=== PATIENT | female | born 1970 | race Caucasian/White ===

== ENCOUNTER 2021-08-13 18:02 | Emergency (ER) | payer OTHER, SELFPAY ==
[2021-08-13 18:03] VITALS: BP 154/98; PULSE 86; PULSE 87; RESP 18; RESP 24; TEMP 36.9; O2SAT 98; O2SAT 99; BMI 22.0
--- NOTE | 2021-08-13 18:16 | EX.ED.DYSGE1 ---
HPI History of Present Illness Chief Complaint: Neuro S/Sx Informant: patient and spouse/S.O. Onset/Context/Timing Onset: Today and Hours Context: Sudden Onset Timing: Continuous Quality: Facial numbness, tingling in extremities, anxiety, dyspnea and forgetfulnes Location: Read HPI Current Severity: Moderate Maximum Severity: Severe Worsened by: Anxiety reaction hyperventilation Relieved by: Nothing Associated Symptoms Associated Symptoms: Per HPI Narrative Narrative: Patient is a 51-year-old woman who presents with amnesia, anxiety reaction, hyperventilation and self diagnosis of ocular headaches without pain. She states she sees squiggly lines in both eyes. She does not have a formal diagnosis of migraines. Patient does have a history of anxiety. She is on Zoloft. She is under stress planning a family gathering. I was asked to go to room 18 immediately. Upon arrival patient is hyperventilating. She is anxious. She is forgetful. She is able to tell the nurse her birthdate, so security but not able to tell the nurse her child's names. She is asking her to ask questions because she cannot remember. She presently denies headache. She denies ocular, visual auditory symptoms. She does have a facial numbness, numbness of her extremities and dyspnea. She has no other symptoms. Prior similar symptoms: No Recent Illness/Hospitalization: No [facility] [place] Medical History Anxiety Home Medications lorazepam [Ativan] 0.5 mg PO TID PRN 3 Days #10 tab 08/13/21 [Rx Last Taken Unknown] sertraline [Zoloft] 50 mg PO DAILY 08/13/21 [History Last Taken Unknown] Allergy/AdvReac Type Severity Reaction Status Date / Time aspirin [ASA] Allergy Shortness Verified 08/13/21 18:10 of breath Social History (Updated 08/13/21 @ 18:[address] Chinmay Aguirre MD) household members: spouse and children Smoking Status: Never smoker alcohol intake: current alcohol intake frequency: holidays/special occasions only substance use type: does not use ROS ROS ED Review of Systems ROS Unobtainable: due to mental condition Constitutional Constitutional ED: Denies chills, fever(s), subjective or sweats Eyes Eyes: Denies blurry vision, change in vision or diplopia ENT ENT ED: Denies ear pain, rhinorrhea or sore throat Cardiovascular Cardiovascular: Reports palpitations; Denies chest pain or racing heartbeat Respiratory/Chest Respiratory/Chest: Reports dyspnea; Denies cough or sputum Gastrointestinal Gastrointestinal: Denies abdominal pain, diarrhea, nausea or vomiting Genitourinary Genitourinary ED: Denies dysuria or hematuria Musculoskeletal Musculoskeletal: Denies arthralgias, myalgias or neck pain Integumentary Denies rash Neurologic Neurologic: Reports paresthesias; Denies headache(s) or weakness Psychiatric Psychiatric: Reports anxiety EXAM Physical Exam Const Vital Signs: 08/13/21 18:03 08/13/21 19:09 Temperature 98.5 F Temperature Source Temporal Pulse Rate 87 75 Respiratory Rate 18 20 H Blood Pressure 154/98 H Blood Pressure Mean 116 Pulse Ox 98 100 Oxygen Delivery Method Room Air Room Air Positive well nourished and well developed General Appearance ED: well developed and other Patient is anxious HEENT HEENT Narrative: Head is atraumatic normocephalic. Ears normal. Nares patent. Patient has bilateral's Chvostek sign. Eyes PERRL and EOMs intact bilaterally General Eye ED: Negative for pale conjunctiva or scleral icterus Neck no lymphadenopathy, supple and no JVD Chest Wall inspection of chest normal and palpation of chest normal Resp normal respiratory effort and clear to auscultation bilaterally Cardio regular rate, regular rhythm, S1 normal heart sound, S2 normal heart sound and no murmurs GI normal to inspection, nondistended, normoactive bowel sounds Back/Spine no CVA tenderness Neuro CN's II-XII intact bilaterally and no sensory deficits noted Neuro Narrative: Hyperreflexia bilaterally and symmetric. 3-4 beats of clonus at the ankles. Negative Babinski sign. Sensorium / Orientation: alert Motor Exam: strength 5/5 throughout Psych mental status grossly normal Mood & Affect: anxious Skin no rashes or lesions noted and no wounds MDM MDM MDM Narrative Medical decision making narrative: Light of patient's constellation of symptoms she is hyperventilating with global amnesia. Per literature no work-up is indicated. She was treated with Ativan for her anxiety she is noticed. Patient was reassessed at 1935. All of her symptoms resolved. She is no longer amnestic. She is no longer hyperventilating. Will discharge with short course of lorazepam. Discharge Plan Triage Chief Complaint: Neuro S/Sx ED Provider: Chinmay Aguirre Dx/Rx/DC Orders Clinical Impression: Amnesia, global, transient, Acute hyperventilation syndrome, Panic attack Instructions: Understanding Reversible Dementias, ED Hyperventilation Syndrome, ED Panic Attack Prescriptions: New lorazepam [Ativan] 0.5 mg tablet 0.5 mg PO TID PRN (Reason: anxiety) 3 Days Qty: 10 RF: 0 No Action sertraline [Zoloft] 50 mg Tablet 50 mg PO DAILY RF: 0 Primary Care Provider: Hair Tirado,Out of Referrals: Hair Doctor,Out of [Primary Care Provider] - 3-5 Days Disposition Disposition: Home, Self Care
[2021-08-13] MEDS: LORazepam 2 MG/ML Syringe 1 MG IV (18:17)
[2021-08-13 18:18] VITALS: BMI 22.0
[2021-08-13 19:09] VITALS: PULSE 75; RESP 20; O2SAT 100
[2021-08-13 20:09] VITALS: BP 123/74; PULSE 71; RESP 16; O2SAT 99
--- NOTE | 2021-08-13 20:10 | ED.RN ---
THIS NURSE REVIEWED D/C INSTRUCTIONS WITH PT AND VISITOR. PT VERBALIZED UNDERSTANDING OF INSTRUCTIONS. IV D/C. IV CATHETER INTACT. PT TOLERATED WELL. PT DENIES FURTHER NEEDS OR QUESTIONS AT THIS TIME
== END 2021-08-13 20:11 | disposition home or self-care (01) ==
PROVIDERS: Emergency Provider Emergency Medicine
DX: G45.4 Transient global amnesia (principal); R06.4 Hyperventilation; F41.0 Panic disorder [episodic paroxysmal anxiety]; R06.00 Dyspnea, unspecified; Z79.899 Other long term (current) drug therapy
CPT/HCPCS: 96374; 99284; A4216